=== PATIENT | male | born 1990 | race Caucasian/White ===

== ENCOUNTER 2017-02-11 05:08 | Emergency (ER) | payer OTHER ==
[~2017-02-11] VITALS: Ht 188 cm; Wt 89.4 kg
[2017-02-11 05:10] VITALS: BP_SYST 149
[2017-02-11] MEDS ORDERED: LIDOCAINE/EPI 1% 1:100000 20 ML VIAL IJ ONE (05:45)
[2017-02-11] MEDS ORDERED: BACITRACIN 1 GM OINT TP ONE (05:45)
[2017-02-11] MEDS ORDERED: DIPH-TET-PERTUS Vaccine 0.5 ML VIAL (ADACEL) IM ONE (05:45)
[2017-02-11] MEDS ORDERED: LIDOCAINE 1%, 20 ML MDV 20 ML ONE (05:49)
[2017-02-11 06:00] VITALS: BP_SYST 132
[2017-02-11] MEDS ORDERED: LIDOCAINE 1% 10 MG/ML, 20 ML MDV IJ ONE (06:00)
== END 2017-02-11 06:00 | disposition home or self-care (01) ==
LOC: SED 05:08
DX: S51.812A Laceration without foreign body of left forearm, initial encounter (principal); I10 Essential (primary) hypertension; F17.200 Nicotine dependence, unspecified, uncomplicated; W45.8XXA Other foreign body or object entering through skin, initial encounter; Y93.89 Activity, other specified; Y92.89 Other specified places as the place of occurrence of the external cause; Y99.8 Other external cause status
CPT/HCPCS: 12001; 90471; 90715; 99283; J2001